=== PATIENT | female | born 1990 | race Caucasian/White ===

== ENCOUNTER 2017-06-09 17:56 | Emergency (ER) | payer BC ==
[2017-06-09 18:26] VITALS: BP 138/89
--- NOTE | 2017-06-09 19:04 | EDM.PDOC ---
ED HPI GENERAL MEDICAL PROBLEM - General Chief Complaint: ENT Problem Stated Complaint: [id number] SHAKING NO VOICE EARS HURT Time Seen by Provider: 06/09/17 18:59 Source of Information: Reports: Patient History Limitations: Reports: No Limitations - History of Present Illness INITIAL COMMENTS - FREE TEXT/NARRATIVE: This 26 yo female patient reports to the ED with a sore throat (2 days), bilateral ear pain (2 days) and a cough (3 days). The patient reports she has attempted to get into her primary care facility, but there were no openings until . The patient has been taking Alegra - D and Tylenol for temporary symptom relief. 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 MATE: Reports: Acetaminophen, Other Medication(s) Throat Pain Score (Numeric/FACES): 6 - Related Data Allergies Allergy/AdvReac Type Severity Reaction Status Date / Time acetaminophen [From NyQuil] Allergy Cannot Verified 06/09/17 18:19 Remember dextromethorphan HBr Allergy Cannot Verified 06/09/17 18:19 [From NyQuil] Remember doxylamine succinate Allergy Cannot Verified 06/09/17 18:19 [From NyQuil] Remember pseudoephedrine HCl Allergy Cannot Verified 06/09/17 18:19 [From NyQuil] Remember Home Meds: Home Meds Levothyroxine [Levothyroxine] 75 mcg PO DAILY 06/09/17 [History] Cmb#95/Iron/FA/DHA [ + Dha Combo Pack] 1 tab PO DAILY 06/09/17 [History] Past Medical History Endocrine/Metabolic History: Reports: Hypothyroidism Hematologic History: Reports: Anemia - Past Surgical History HEENT Surgical History: Reports: Adenoidectomy, Tonsillectomy Social & Family History - Family History Family Medical History: Noncontributory - Tobacco Use Smoking Status *Q: Never Smoker Second Hand Smoke Exposure: No - Caffeine Use Caffeine Use: Reports: None - Recreational Drug Use Recreational Drug Use: No ED ROS ENT - Review of Systems Review Of Systems: ROS reveals no pertinent complaints other than HPI. ED EXAM, ENT - Physical Exam Exam: See Below Exam Limited By: No Limitations General Appearance: Alert, WD/WN, Moderate Distress Eye Exam: Bilateral Eye: EOMI, Normal Inspection, PERRL Ears: Normal External Exam, Normal Canal, Hearing Grossly Normal, Other (TM retraction) Nose: Normal Inspection, Normal Mucousa, No Blood Mouth/Throat: Normal Inspection, Normal Gums, Normal Lips, Normal Oropharynx, Normal Teeth Head: Atraumatic, Normocephalic Neck: Normal Inspection, Supple, Full Range of Motion, Tender Lateral Respiratory/Chest: No Respiratory Distress, Lungs Clear, Normal Breath Sounds, No Accessory Muscle Use, Chest Non-Tender Cardiovascular: Normal Peripheral Pulses, Regular Rate, Rhythm, No Edema, No Gallop, No JVD, No Murmur, No Rub GI/Abdominal: Normal Bowel Sounds, Soft, Non-Tender, No Organomegaly, No Distention, No Abnormal Bruit, No Mass Course - Vital Signs Last Recorded V/S: Last Vital Signs Temp 37.0 C 06/09/17 18:24 Pulse 90 06/09/17 18:24 Resp 20 06/09/17 18:24 BP 138/89 06/09/17 18:24 Pulse Ox 98 06/09/17 18:24 - Orders/Labs/Meds Orders: Active Orders 24 hr Category Date Time Status CULTURE STREP A CONFIRMATION [] Stat Lab 06/09/17 18:22 Results STREP SCRN A RAPID W CULT CONF [] Stat Lab 06/09/17 18:22 Results Departure - Departure Time of Disposition: 19:07 Disposition: Home, Self-Care 01 Condition: Fair Clinical Impression: Bronchitis - Discharge Information Instructions: Acute Bronchitis, [id number] Care Plan Goals: The patient was advised of the examination and lab results during the visit. The patient was given a script for Augmentin (500/125) to take 1 by mouth 2 times per day for 10 days. If the patient has any additional symptoms or concerns, the patient should follow-up with her primary care facility or return to the emergency department.
== END 2017-06-09 19:12 | disposition home or self-care (01) ==
LOC: DL.ED 17:56
DX: J40 Bronchitis, not specified as acute or chronic (principal); Z88.8 Allergy status to other drugs, medicaments and biological substances; Z79.899 Other long term (current) drug therapy; Z98.890 Other specified postprocedural states
CPT/HCPCS: 87081; 87430; 99283

== ENCOUNTER 2019-10-31 16:45 | Emergency (ER) | payer BC, OTHER ==
[2019-10-31 16:50] VITALS: BP 159/99; PULSE 100
[2019-10-31] MEDS ORDERED: Sodium Chloride 0.9% 10 ML Syringe FLUSH PRN (16:53)
--- NOTE | 2019-10-31 16:56 | EDM.PDOC ---
"<MendezpaulyPadma - Last Filed: 10/31/19 18:51> ED HPI GENERAL MEDICAL PROBLEM - General Chief Complaint: Chest Pain Stated Complaint: Chest Pain Time Seen by Provider: 10/31/19 17:15 Source of Information: Reports: Patient, RN Notes Reviewed History Limitations: Reports: No Limitations - History of Present Illness INITIAL COMMENTS - FREE TEXT/NARRATIVE: Patient presents to the ED by wheelchair from clinic with concerns of chest pain , shortness of breath. 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 The patient describes pressure, left-sided, 4/10 pain, which initially felt similar to reflux which she has had in the past. The patient reports taking an antacid at the time without any relief of symptoms. The pain has remained constant since onset. The patient does have a history of iron deficiency anemia, she remains on oral iron supplements. She also reports a history of hypothyroidism, anemia, PCOS, and migraines. The patient denies use of hormonal contraceptives. Denies tobacco use. Denies recent travel. 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) (antacid approximately 11:30 am) - Related Data Allergies Allergy/AdvReac Type Severity Reaction Status Date / Time dextromethorphan HBr Allergy Cannot Verified 10/31/19 17:29 [From NyQuil] Remember doxylamine succinate Allergy Cannot Verified 10/31/19 17:29 [From NyQuil] Remember pseudoephedrine HCl Allergy Cannot Verified 10/31/19 17:29 [From NyQuil] Remember Home Meds: Home Meds Levothyroxine 75 mcg PO DAILY 06/09/17 [History] 95/Iron Fum/Folic/Dha [ + Dha Combo Pack] 1 tab PO DAILY [History] Amitriptyline HCl 100 mg PO DAILY 10/31/19 [History] Ranitidine HCl [Zantac 75] 75 mg PO DAILY 10/31/19 [History] Past Medical History Gastrointestinal History: Reports: GERD Neurological History: Reports: Migraines Endocrine/Metabolic History: Reports: Hypothyroidism, Other (See Below) (PCOS) Hematologic History: Reports: Anemia, Blood Transfusion(s) (Reports blood transfusion indicated for iron deficiency anemia in July 2019) - Past Surgical History HEENT Surgical History: Reports: Adenoidectomy, Tonsillectomy Social & Family History - Family History Family Medical History: Noncontributory - Tobacco Use Smoking Status *Q: Never Smoker Tobacco Use Within Last Twelve Months: No - Caffeine Use Caffeine Use: Reports: None - Alcohol Use Alcohol Use History: No - Recreational Drug Use Recreational Drug Use: No ED ROS GENERAL - Review of Systems Review Of Systems: Comprehensive ROS is negative, except as noted in HPI. Constitutional: Denies: Fever, Chills Cardiovascular: Reports: Chest Pain. Denies: Lightheadedness, Syncope GI/Abdominal: Denies: Abdominal Pain, Bloody Stool, Constipation, Diarrhea, Melena, Nausea, Vomiting : Denies: Hematuria, Irregular Menses ED EXAM, GENERAL - Physical Exam Exam: See Below Exam Limited By: No Limitations General Appearance: Alert, No Apparent Distress, Obese Respiratory/Chest: No Respiratory Distress, Lungs Clear, Normal Breath Sounds, No Accessory Muscle Use, Chest Non-Tender Cardiovascular: Normal Peripheral Pulses, Regular Rate, Rhythm, No Edema, No Murmur GI/Abdominal: Normal Bowel Sounds, Soft, Non-Tender Psychiatric: Normal Affect, Normal Mood EKG INTERPRETATION EKG Date: 10/31/19 Time: 16:55 Rhythm: NSR [place]: Normal P-Wave: Present QRS: Normal ST-T: Normal QT: Normal Comparison: No Change Course - Vital Signs Last Recorded V/S: Last Vital Signs Temp 36.6 C 10/31/19 16:45 Pulse 100 10/31/19 16:45 Resp 18 10/31/19 16:45 BP 159/99 H 10/31/19 16:45 Pulse Ox 97 10/31/19 16:45 - Orders/Labs/Meds Orders: Active Orders 24 hr Category Date Time Status EKG 12 Lead [EKG Documentation Completion] [RC] STAT Care 10/31/19 16:50 Active Peripheral IV Care [RC] . DIRECTED Care 10/31/19 16:54 Active Chest w Cont [CT] Stat Exams 10/31/19 18:04 Taken Sodium Chloride 0.9% [Saline Flush] Med 10/31/19 16:53 Active 10 ml FLUSH ASDIRECTED PRN Peripheral IV Insertion Adult [OM.PC] Stat Oth 10/31/19 16:53 Ordered Medication Orders Sodium Chloride (Saline Flush) 10 ml FLUSH ASDIRECTED PRN PRN Reason: Keep Vein Open Last Admin: 10/31/19 18:49 Dose: 10 ml Labs: Laboratory Tests 10/31/19 10/31/19 10/31/19 Range/Units 17:19 17:19 17:19 WBC 12.1 H (5.0-10.0) 10^3/uL RBC 5.03 (4.2-5.4) 10^6/uL Hgb 9.9 L D (12.0-16.0) g/dL Hct 33.4 L (37.0-47.0) % MCV 66.4 L D (80-100) fL MCH 19.7 L (27.0-34.0) pg MCHC 29.6 L (33.0-35.0) g/dL Plt Count 347 D (150-450) 10^3/uL Neut % (Auto) 72.3 (42.2-75.2) % Lymph % (Auto) 22.3 (20.5-50.1) % [place] % (Auto) 4.6 (2-8) % Eos % (Auto) 0.5 L (1.0-3.0) % Baso % (Auto) 0.3 (0.0-1.0) % PT 10.7 (9.0-12.0) SEC INR 1.0 (0.9-1.2) APTT 22.1 (22.0-34.0) SEC D-Dimer, Quantitative 619 H (0-400) ng/mL Sodium 138 (135-145) mmol/L Potassium 3.6 (3.6-5.0) mmol/L Chloride 104 (101-111) mmol/L Carbon Dioxide 23.0 (21.0-31.0) mmol/L Anion Gap 14.6 BUN 17 (7-18) mg/dL Creatinine 0.7 (0.6-1.3) mg/dL Est Cr Clr Drug Dosing 125.04 mL/min Estimated GFR (MDRD) > 60 BUN/Creatinine Ratio 24.28 Glucose 87 (74-105) mg/dL Calcium 9.4 (8.4-10.2) mg/dl Magnesium 2.0 (1.8-2.5) mg/dL Total Bilirubin 0.7 (0.2-1.0) mg/dL AST 21 (10-42) IU/L ALT 16 (10-60) IU/L Alkaline Phosphatase 60 (42-121) IU/L Troponin I 0.04 H* (0.00-0.02) ng/ml Total Protein 7.6 (6.7-8.2) g/dl Albumin 4.1 (3.2-5.5) g/dl Globulin 3.5 Albumin/Globulin Ratio 1.17 Lipase 35 (22-51) U/L Urine Color (YELLOW) Urine Appearance (CLEAR) Urine pH (5.0-9.0) Ur Specific Bee (1.005-1.030) Urine Protein (NEGATIVE) Urine Glucose (UA) (NEGATIVE) Urine Ketones (NEGATIVE) Urine Occult Blood (NEGATIVE) Urine Nitrite (NEGATIVE) Urine Bilirubin (NEGATIVE) Urine Urobilinogen (0.2-1.0) mg/dL Ur Leukocyte Esterase (NEGATIVE) Urine HCG, Qual Urine Opiates Screen (NEGATIVE) Ur Oxycodone Screen (NEGATIVE) Urine Methadone Screen (NEGATIVE) Ur Barbiturates Screen (NEGATIVE) U Tricyclic Antidepress (NEGATIVE) Ur Phencyclidine Scrn (NEGATIVE) Ur Amphetamine Screen (NEGATIVE) U Methamphetamines Scrn (NEGATIVE) Urine MDMA Screen (NEGATIVE) U Benzodiazepines Scrn (NEGATIVE) Urine Cocaine Screen (NEGATIVE) U Marijuana (THC) Screen (NEGATIVE) 10/31/19 10/31/19 10/31/19 Range/Units 19:17 19:17 19:17 WBC (5.0-10.0) 10^3/uL RBC (4.2-5.4) 10^6/uL Hgb (12.0-16.0) g/dL Hct (37.0-47.0) % MCV (80-100) fL MCH (27.0-34.0) pg MCHC (33.0-35.0) g/dL Plt Count (150-450) 10^3/uL Neut % (Auto) (42.2-75.2) % Lymph % (Auto) (20.5-50.1) % [place] % (Auto) (2-8) % Eos % (Auto) (1.0-3.0) % Baso % (Auto) (0.0-1.0) % PT (9.0-12.0) SEC INR (0.9-1.2) APTT (22.0-34.0) SEC D-Dimer, Quantitative (0-400) ng/mL Sodium (135-145) mmol/L Potassium (3.6-5.0) mmol/L Chloride (101-111) mmol/L Carbon Dioxide (21.0-31.0) mmol/L Anion Gap BUN (7-18) mg/dL Creatinine (0.6-1.3) mg/dL Est Cr Clr Drug Dosing mL/min Estimated GFR (MDRD) BUN/Creatinine Ratio Glucose (74-105) mg/dL Calcium (8.4-10.2) mg/dl Magnesium (1.8-2.5) mg/dL Total Bilirubin (0.2-1.0) mg/dL AST (10-42) IU/L ALT (10-60) IU/L Alkaline Phosphatase (42-121) IU/L Troponin I (0.00-0.02) ng/ml Total Protein (6.7-8.2) g/dl Albumin (3.2-5.5) g/dl Globulin Albumin/Globulin Ratio Lipase (22-51) U/L Urine Color Yellow (YELLOW) Urine Appearance Clear (CLEAR) Urine pH 5.5 (5.0-9.0) Ur Specific Bee >= 1.030 (1.005-1.030) Urine Protein Negative (NEGATIVE) Urine Glucose (UA) Negative (NEGATIVE) Urine Ketones Negative (NEGATIVE) Urine Occult Blood Negative (NEGATIVE) Urine Nitrite Negative (NEGATIVE) Urine Bilirubin Negative (NEGATIVE) Urine Urobilinogen 0.2 (0.2-1.0) mg/dL Ur Leukocyte Esterase Negative (NEGATIVE) Urine HCG, Qual Negative Urine Opiates Screen Negative (NEGATIVE) Ur Oxycodone Screen Negative (NEGATIVE) Urine Methadone Screen Negative (NEGATIVE) Ur Barbiturates Screen Negative (NEGATIVE) U Tricyclic Antidepress Negative (NEGATIVE) Ur Phencyclidine Scrn Negative (NEGATIVE) Ur Amphetamine Screen Negative (NEGATIVE) U Methamphetamines Scrn Negative (NEGATIVE) Urine MDMA Screen Negative (NEGATIVE) U Benzodiazepines Scrn Negative (NEGATIVE) Urine Cocaine Screen Negative (NEGATIVE) U Marijuana (THC) Screen Negative (NEGATIVE) 10/31/19 Range/Units 20:27 WBC (5.0-10.0) 10^3/uL RBC (4.2-5.4) 10^6/uL Hgb (12.0-16.0) g/dL Hct (37.0-47.0) % MCV (80-100) fL MCH (27.0-34.0) pg MCHC (33.0-35.0) g/dL Plt Count (150-450) 10^3/uL Neut % (Auto) (42.2-75.2) % Lymph % (Auto) (20.5-50.1) % [place] % (Auto) (2-8) % Eos % (Auto) (1.0-3.0) % Baso % (Auto) (0.0-1.0) % PT (9.0-12.0) SEC INR (0.9-1.2) APTT (22.0-34.0) SEC D-Dimer, Quantitative (0-400) ng/mL Sodium (135-145) mmol/L Potassium (3.6-5.0) mmol/L Chloride (101-111) mmol/L Carbon Dioxide (21.0-31.0) mmol/L Anion Gap BUN (7-18) mg/dL Creatinine (0.6-1.3) mg/dL Est Cr Clr Drug Dosing mL/min Estimated GFR (MDRD) BUN/Creatinine Ratio Glucose (74-105) mg/dL Calcium (8.4-10.2) mg/dl Magnesium (1.8-2.5) mg/dL Total Bilirubin (0.2-1.0) mg/dL AST (10-42) IU/L ALT (10-60) IU/L Alkaline Phosphatase (42-121) IU/L Troponin I < 0.02 (0.00-0.02) ng/ml Total Protein (6.7-8.2) g/dl Albumin (3.2-5.5) g/dl Globulin Albumin/Globulin Ratio Lipase (22-51) U/L Urine Color (YELLOW) Urine Appearance (CLEAR) Urine pH (5.0-9.0) Ur Specific Bee (1.005-1.030) Urine Protein (NEGATIVE) Urine Glucose (UA) (NEGATIVE) Urine Ketones (NEGATIVE) Urine Occult Blood (NEGATIVE) Urine Nitrite (NEGATIVE) Urine Bilirubin (NEGATIVE) Urine Urobilinogen (0.2-1.0) mg/dL Ur Leukocyte Esterase (NEGATIVE) Urine HCG, Qual Urine Opiates Screen (NEGATIVE) Ur Oxycodone Screen (NEGATIVE) Urine Methadone Screen (NEGATIVE) Ur Barbiturates Screen (NEGATIVE) U Tricyclic Antidepress (NEGATIVE) Ur Phencyclidine Scrn (NEGATIVE) Ur Amphetamine Screen (NEGATIVE) U Methamphetamines Scrn (NEGATIVE) Urine MDMA Screen (NEGATIVE) U Benzodiazepines Scrn (NEGATIVE) Urine Cocaine Screen (NEGATIVE) U Marijuana (THC) Screen (NEGATIVE) Meds: Medications Generic Name Dose Route Start Last Admin Trade Name Freq PRN Reason Stop Dose Admin Sodium Chloride 10 ml 10/31/19 16:53 10/31/19 18:49 Saline Flush FLUSH 10 ml ASDIRECTED PRN Administration Keep Vein Open Discontinued Medications Generic Name Dose Route Start Last Admin Trade Name Freq PRN Reason Stop Dose Admin Al Hydroxide/Mg Hydroxide 30 ml 10/31/19 19:59 10/31/19 20:07 Gi Cocktail PO 10/31/19 20:00 30 ml ONETIME ONE Administration Aspirin 324 mg 10/31/19 17:14 10/31/19 18:06 Aspirin PO 10/31/19 17:15 324 mg ONETIME ONE Administration Iopamidol 100 ml 10/31/19 18:05 10/31/19 19:24 Isovue-370 (76%) IVPUSH 10/31/19 18:06 100 ml ONETIME ONE Administration Departure - Departure Disposition: Home, Self-Care 01 Clinical Impression: Non-cardiac chest pain Instructions: Nonspecific Chest Pain, [id number], Pain Without a Known Cause Forms: ED Department Discharge Additional Instructions: Continue with previous therapies. Return to the ED if new or worsening symptoms. Follow up with PCP in the next 2 days for recheck. 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 Sepsis Event Note - Focused Exam Date Exam was Performed: 10/31/19 Time Exam was Performed: 18:53 <FrannyNavjot G - Last Filed: 10/31/19 21:19> Course - Radiology Interpretation Free Text/Narrative:: [facility] [place] [facility] Final Radiology Report Call: [phone] assistance Online chat: [email or web address] Name: CAMDEN MITCHELL Age: 28Years F Date: 10/31/2019 SSN: -- : 1990 Study: CT CHEST W Requesting Physician: JUDD SAUNDERS Images: [id number] Addl Studies: Provided Clinical History: Contrast: With Contrast Medium: [id number] Contrast Amount: 100 mL Contrast Method: iv Page 1 of 2 PROCEDURE INFORMATION: Exam: CT Chest With Contrast Exam date and time: 10/31/2019 7:04 PM Age: 28 years old Clinical indication: Chest pain; Patient HX: Cp, sob<elev d-dimer TECHNIQUE: Imaging protocol: Computed tomography of the chest with intravenous contrast. Radiation optimization: All CT scans at this facility use at least one of these dose optimization techniques: automated exposure control; mA and/or kV adjustment per patient size (includes targeted exams where dose is matched to clinical indication); or iterative reconstruction. Contrast material: [id number]; Contrast volume: 100 ml; Contrast route: IV; COMPARISON: No relevant prior studies available. FINDINGS: Limitations: Image quality is reduced due to the patient's large body habitus. Lungs: The lung volumes are relatively low. The lungs appear symmetric and clear. There is minimal atelectasis in the right upper lobe. No pneumonia is identified. No worrisome pulmonary nodules or masses are appreciated. The central airways are widely patent. Pleural space: There are no pleural effusions. There is no pneumothorax. Heart: The heart size is normal. There is no pericardial effusion. Aorta: The thoracic aorta is normal in caliber and contour. There is no evidence of aneurysm or dissection. Lymph nodes: No pathologically enlarged mediastinal, hilar or axillary lymph nodes are identified. Spleen: The spleen appears enlarged, measuring 14.6 cm. Bones/joints: There is normal alignment throughout the thoracic spine. No acute fractures or aggressive bone lesions are identified. Soft tissues: Unremarkable. CAMDEN MITCHELL | Final Radiology Report CONFIDENTIALITY STATEMENT This report is intended only for use by the referring physician, and only in accordance with law. If you received this in error, call [phone]. Page 2 of 2 IMPRESSION: 1. Allowing for limitations due to the patient's large body habitus, there is no convincing evidence for pulmonary embolism, acute aortic pathology or pneumonia. 2. Nonspecific splenomegaly. Thank you for allowing us to participate in the care of your patient. Dictated and Authenticated by: Nasima Avina MD 10/31/2019 7:45 PM Central Time ([place] & [place]) - Re-Assessments/Exams Free Text/Narrative Re-Assessment/Exam: 10/31/19 20:19 assume care of the patient in [address] scan of the chest per radiology shows that it study due to body habitus there is no convincing evidence for pulmonary embolism acute aortic pathology or pneumonia. Nonspecific splenomegaly. Patient continues to have a constant midsternal pressure to her chest. It is not reproducible on palpation. The patient was given a GI cocktail without resolution. I will repeat her troponin. 10/31/19 21:18 repeated her troponin which is now less than 0.02. Her pain is no slowly improving. I'm really unsure what is causing her chest pain but it is not cardiac or pulmonary embolism or pneumonia related. We will discharge her home with close follow up with PCP patient is comfortable with this plan and her questions answered. Departure - Departure Time of Disposition: 20:55 Sepsis Event Note - Focused Exam Date Exam was Performed: 10/31/19 Time Exam was Performed: 21:17 - Assessment/Plan Assessment:: Non-cardiac chest pain unknown cause. Plan: Continue with previous therapies. Return to the ED if new or worsening symptoms. Follow up with PCP in the next 2 days for recheck."
[2019-10-31] MEDS ORDERED: Aspirin 81 MG Tab.Chew PO ONE (17:14)
--- NOTE | 2019-10-31 17:27 | CR ---
EXAMINATION: Chest 1V Frontal SEX: Female AGE: 28 years CLINICAL HISTORY: 28-year-old female complaining of CHEST PAIN. INTERPRETATION: Reasonable inspiratory effort morbidly obese patient. 1. Normal cardiac silhouette and pulmonary vascularity. No congestion, cephalization of flow, alveolar edema or dependent effusion. (External personnel monitor leads). 2. Midline tracheal airway unremarkable. No pneumothorax or pneumomediastinum. 3. No lung mass, hilar lymphadenopathy or focal lobar consolidation (no infiltrate or atelectasis). CONCLUSION: No acute cardiopulmonary abnormality.
[2019-10-31 17:45] LABS: ANION GAP 14.6; CHLORIDE,CL 104 mmol/L (101-111); SODIUM,NA 138 mmol/L (135-145)
[2019-10-31 17:49] LABS: PTT,PARTIAL THROMBOPLSTIN TIME 22.1 SEC (22.0-34.0)
[2019-10-31] MEDS ORDERED: Iopamidol 755 Mg/ML 100 ML Bottle IVPUSH ONE (18:05)
[2019-10-31] MEDS ORDERED: GI Cocktail Oral Solution 30 ML PO ONE (19:59)
== END 2019-10-31 21:15 | disposition home or self-care (01) ==
LOC: DL.ED 16:45
DX: R07.89 Other chest pain (principal); E03.9 Hypothyroidism, unspecified; K21.9 Gastro-esophageal reflux disease without esophagitis; Z79.899 Other long term (current) drug therapy; Z88.8 Allergy status to other drugs, medicaments and biological substances
CPT/HCPCS: 36415; 71045; 71260; 80053; 80305; 81003; 81025; 83690; 83735; 84484; 85025; 85379; 85610; 85730; 93005; 99285; A9270; Q9967

== ENCOUNTER 2019-12-19 06:09 | Emergency (ER) | payer OTHER ==
[2019-12-19 06:21] VITALS: BP 132/88; PULSE 79
[2019-12-19] MEDS ORDERED: GI Cocktail Oral Solution 30 ML PO ONE (06:37)
--- NOTE | 2019-12-19 06:40 | EDM.PDOC ---
<Mike Ortega - Last Filed: 12/19/19 06:52> ED HPI GENERAL MEDICAL PROBLEM - General Chief Complaint: Chest Pain Stated Complaint: CHEST PAIN Time Seen by Provider: 12/19/19 06:37 Source of Information: Reports: Patient History Limitations: Reports: No Limitations - History of Present Illness INITIAL COMMENTS - FREE TEXT/NARRATIVE: onset mid chest pain while driving to work, hadn't had breakfast but did eat dinner last night of grilled chicken, gives h/o acid reflux. Chest Pain Score (Numeric/FACES): 7 - Related Data Allergies Allergy/AdvReac Type Severity Reaction Status Date / Time dextromethorphan HBr Allergy Cannot Verified 12/19/19 06:17 [From NyQuil] Remember doxylamine succinate Allergy Cannot Verified 12/19/19 06:17 [From NyQuil] Remember pseudoephedrine HCl Allergy Cannot Verified 12/19/19 06:17 [From NyQuil] Remember Home Meds: Home Meds Levothyroxine 75 mcg PO DAILY 06/09/17 [History] Amitriptyline HCl 100 mg PO DAILY 10/31/19 [History] Folic Acid 1 mg PO DAILY 12/19/19 [History] SUMAtriptan [Imitrex] 50 mg PO ASDIRECTED 12/19/19 [History] Past Medical History Cardiovascular History: Reports: None Respiratory History: Reports: None Gastrointestinal History: Reports: GERD Genitourinary History: Reports: None FIRE PREVENTION CHIEF History: Reports: None Musculoskeletal History: Reports: None Neurological History: Reports: Migraines Psychiatric History: Reports: None Endocrine/Metabolic History: Reports: Hypothyroidism, Obesity/BMI 30+, Other ( See Below) Hematologic History: Reports: Anemia, Blood Transfusion(s) Immunologic History: Reports: None Oncologic (Cancer) History: Reports: None Dermatologic History: Reports: None - Infectious Disease History Infectious Disease History: Reports: Chicken Pox - Past Surgical History Head Surgeries/Procedures: Reports: None HEENT Surgical History: Reports: Adenoidectomy, Tonsillectomy Respiratory Surgical History: Reports: None Female Surgical History: Reports: None Musculoskeletal Surgical History: Reports: None Social & Family History - Family History Family Medical History: Noncontributory - Tobacco Use Smoking Status *Q: Never Smoker Second Hand Smoke Exposure: No - Caffeine Use Caffeine Use: Reports: None - Recreational Drug Use Recreational Drug Use: No ED ROS GENERAL - Review of Systems Review Of Systems: Comprehensive ROS is negative, except as noted in HPI. ED EXAM, GENERAL - Physical Exam Exam: See Below Exam Limited By: No Limitations General Appearance: Alert, WD/WN, Anxious, Mild Distress Ears: Hearing Grossly Normal Throat/Mouth: Normal Voice, No Airway Compromise Head: Atraumatic Neck: Non-Tender, Full Range of Motion Respiratory/Chest: No Respiratory Distress Cardiovascular: Regular Rate, Rhythm GI/Abdominal: Soft, Non-Tender Neurological: Alert, Oriented, Normal Cognition, Normal Gait, No Motor/Sensory Deficits Psychiatric: Anxious Skin Exam: Warm, Dry, Normal Color Lymphatic: No Adenopathy Course - Vital Signs Last Recorded V/S: Last Vital Signs Temp 96.8 F L 12/19/19 06:19 Pulse 79 12/19/19 06:19 Resp 19 12/19/19 06:19 BP 132/88 12/19/19 06:19 Pulse Ox 100 12/19/19 06:19 - Orders/Labs/Meds Orders: Active Orders 24 hr Category Date Time Status EKG 12 Lead [EKG Documentation Completion] [RC] STAT Care 12/19/19 06:23 Active Labs: Laboratory Tests 12/19/19 12/19/19 Range/Units 06:25 06:25 WBC 9.1 (5.0-10.0) 10^3/uL RBC 5.14 (4.2-5.4) 10^6/uL Hgb 10.8 L (12.0-16.0) g/dL Hct 36.1 L (37.0-47.0) % MCV 70.2 L D (80-100) fL MCH 21.0 L (27.0-34.0) pg MCHC 29.9 L (33.0-35.0) g/dL Plt Count 306 (150-450) 10^3/uL Neut % (Auto) 56.0 (42.2-75.2) % Lymph % (Auto) 35.6 (20.5-50.1) % Gilmer % (Auto) 6.1 (2-8) % Eos % (Auto) 2.0 (1.0-3.0) % Baso % (Auto) 0.3 (0.0-1.0) % Sodium 141 (136-145) mmol/L Potassium 3.9 (3.5-5.1) mmol/L Chloride 106 (98-107) mmol/L Carbon Dioxide 24 (21-32) mmol/L Anion Gap 14.9 H (7-13) mEq/L BUN 14 (7-18) mg/dL Creatinine 0.75 (0.55-1.02) mg/dL Est Cr Clr Drug Dosing 108.60 mL/min Estimated GFR (MDRD) > 60 BUN/Creatinine Ratio 18.7 (No establ ref range) Glucose 93 (74-99) mg/dL Calcium 8.3 L (8.5-10.1) mg/dL Total Bilirubin 0.2 (0.2-1.0) mg/dL AST 12 L (15-37) U/L ALT 23 (14-59) U/L Alkaline Phosphatase 66 (46-116) U/L Troponin I < 0.017 (0.000-0.056) ng/mL Total Protein 7.0 (6.4-8.2) g/dL Albumin 3.2 L (3.4-5.0) g/dL Globulin 3.8 Albumin/Globulin Ratio 0.84 Meds: Medications Discontinued Medications Generic Name Dose Route Start Last Admin Trade Name Freq PRN Reason Stop Dose Admin Al Hydroxide/Mg Hydroxide 30 ml 12/19/19 06:37 12/19/19 06:42 Gi Cocktail PO 12/19/19 06:38 30 ml ONETIME ONE Administration Pantoprazole Sodium 40 mg 12/19/19 07:18 12/19/19 07:26 Protonix Iv IVPUSH 12/19/19 07:19 40 mg ONETIME ONE Administration Departure - Departure Disposition: Home, Self-Care 01 Clinical Impression: Gastroesophageal reflux disease Qualifiers: Esophagitis presence: without esophagitis Qualified Code(s): K21.9 - Gastro- esophageal reflux disease without esophagitis Instructions: Indigestion, [id number], Heartburn, [id number], Food Choices for Gastroesophageal Reflux Disease, Adult, [id number] Forms: ED Department Discharge Additional Instructions: Drink plenty of water Refrain from drinking soda, coffee Follow up with your primary care facility Sepsis Event Note - Evaluation Sepsis Screening Result: No Definite Risk - Focused Exam Vital Signs: Vital Signs Temp Pulse Resp BP Pulse Ox 12/19/19 06:19 96.8 F L 79 19 132/88 100 Date Exam was Performed: 12/19/19 Time Exam was Performed: 06:52 <Radha Castillo - Last Filed: 12/19/19 07:48> Course - Radiology Interpretation Free Text/Narrative:: Chest xray: FINDINGS: Lungs: Unremarkable. No consolidation. Pleural space: Unremarkable. No pleural effusion. No pneumothorax. Heart/Mediastinum: Unremarkable. No cardiomegaly. Bones/joints: Unremarkable. IMPRESSION: No evidence for acute pulmonary disease. Thank you for allowing us to participate in the care of your patient. Dictated and Authenticated by: Simba Ca MD 12/19/2019 7:05 AM Central Time ([place] & [place]) See rad report - Re-Assessments/Exams Free Text/Narrative Re-Assessment/Exam: 12/19/19 07:19 Patient continues to rate pain 6/10. States she takes Zantac on a daily basis. Departure - Departure Time of Disposition: 07:46 Reason for Transfer *Q: Other Condition: Fair Sepsis Event Note - Focused Exam Date Exam was Performed: 12/19/19 Time Exam was Performed: 07:46
[2019-12-19 06:54] LABS: ANION GAP 14.9 mEq/L (7-13); CHLORIDE,CL 106 mmol/L (98-107); SODIUM,NA 141 mmol/L (136-145)
[2019-12-19] MEDS ORDERED: Pantoprazole 40 MG Vial IVPUSH ONE (07:18)
== END 2019-12-19 07:55 | disposition home or self-care (01) ==
LOC: DL.ED 06:09
DX: K21.9 Gastro-esophageal reflux disease without esophagitis (principal); E03.9 Hypothyroidism, unspecified; E66.9 Obesity, unspecified; Z68.43 Body mass index [BMI] 50.0-59.9, adult; Z88.8 Allergy status to other drugs, medicaments and biological substances; Z79.899 Other long term (current) drug therapy
CPT/HCPCS: 36415; 71045; 80053; 84484; 85025; 93005; 96374; 99285-25; A9270-GY; C9113